=== PATIENT | female | born 1995 | race Caucasian/White ===

== ENCOUNTER 2019-09-12 15:24 | Emergency (ER) | payer OTHER, SELFPAY ==
[2019-09-12 15:35] VITALS: BP 136/82; PULSE 66; RESP 16; TEMP 36.8; O2SAT 99; BMI 25.8
--- NOTE | 2019-09-12 16:19 | ED_ITS ---
HPI - Headache <SUZETTE Miramontes - Last Filed: 09/12/19 19:10> General Chief Complaint: Headache Stated Complaint: neck and back pain with vision loss and migraine Time Seen by Provider: 09/12/19 15:39 Source: patient Mode of arrival: Ambulatory Limitations: no limitations History of Present Illness HPI Narrative: The patient is a 24-year-old female nonsmoker with history of migraines who presents with a chief complaint of a headache and visual disturbances going on since yesterday. She complains of ?[place] syndrome related to her migraine. She states that she has seen a neurologist in the past, who states that she has this syndrome when she has migraines. Over the past few days she has noted some jagged lines in her vision, some blurry vision at times, headache behind her eye in the back of her head. She has taken Tylenol and Motrin most recently 3 hours prior to arrival. Nausea no vomiting, photophobia and phonophobia noted. She denies any possibility of . She denies any falls or trauma. She does state that she saw her primary care provider last week for some neck pain, was started on ibuprofen and Flexeril. She states she has pain just at the base of her skull. No thunderclap sensation Related Data Allergies Allergy/AdvReac Type Severity Reaction Status Date / Time No Known Drug Allergies Allergy Verified 09/12/19 15:39 Review of Systems <FRED Miramontes - Last Filed: 09/12/19 19:10> Review of Systems Narrative: GENERAL: Denies chills, fatigue, malaise, fever, sweats. HEENT: Denies sinus pain, ear pain, sore throat, difficulty swallowing, dizziness. RESPIRATORY: Denies dyspnea, cough, wheezing, hemoptysis, sputum. CARDIOVASCULAR: Denies chest pain, palpitations, orthopnea, edema, GASTROINTESTINAL: Denies nausea, vomiting, abdominal pain, diarrhea, constipation, melena. : Denies dysuria, frequency, incontinence, hematuria, urinary retention. MUSCULOSKELETAL: denies weakness, joint pain, or bony pain SKIN: Denies rash, skin lesions, or other NEUROLOGIC: See HPI PSYCHIATRIC: No concerning psychosocial issues. 12 point review of systems is negative except for those stated above Exam <FRED MiramontesBC - Last Filed: 09/12/19 19:10> Narrative Exam Narrative: GENERAL: This is a well-nourished, well-developed patient, in no acute distress HEAD: Atraumatic. Normocephalic. No temporal or scalp tenderness. EYES: Pupils equal round and reactive. Extraocular motions intact. No scleral icterus. No injection or drainage. ENT: Nose without bleeding, purulent drainage or septal hematoma. Throat without erythema, tonsillar hypertrophy or exudate. Uvula midline. Airway patent. NECK: Trachea midline. No JVD or lymphadenopathy. Supple, nontender, no meningeal signs. CARDIOVASCULAR: Regular rate and rhythm RESPIRATORY: Clear to auscultation. Breath sounds equal bilaterally. No wheezes, rales, or rhonchi. GASTROINTESTINAL: Abdomen soft, non-tender, nondistended. No hepato- splenomegaly, or palpable masses. No guarding. EXTREMITIES: No clubbing, cyanosis, or edema. No joint tenderness, effusion, or edema noted. BACK: CT and L-spine or without deformity or crepitance. Pain to bilateral paraspinal C-spine muscles along skull. NEURO: AOx3. Interactive. Stable gait. Follows commands. SKIN: No rash or erythema on visible skin Initial Vital Signs Initial Vital Signs: Vital Signs Temperature 98.2 F 09/12/19 15:35 Pulse Rate 66 09/12/19 15:35 Respiratory Rate 16 09/12/19 15:35 Blood Pressure 136/82 09/12/19 15:35 Pulse Oximetry 99 09/12/19 15:35 <Samuel Reynoso DO - Last Filed: 09/12/19 19:20> Initial Vital Signs Initial Vital Signs: Vital Signs Temperature 98.2 F 09/12/19 15:35 Pulse Rate 66 09/12/19 15:35 Respiratory Rate 16 09/12/19 15:35 Blood Pressure 136/82 09/12/19 15:35 Pulse Oximetry 99 09/12/19 15:35 Scores <DANIELLE Miramontes-BC - Last Filed: 09/12/19 19:10> GCS Cathie coma scale eye opening: Spontaneous [place] coma scale verbal response: Orientated Cathie coma scale motor response: Obey commands Cathie coma scale total score: 15 NIH Stroke Scale Level of Conciousness: Alert, keenly responsive Ask month/age: Answers both questions correctly. Open/close eyes, close hand: Performs both tasks correctly Best gaze horizontal: Normal Facial palsy: Normal symetrical movement Left arm drift: No drift for full 10 sec Right arm drift: No drift for full 10 sec Left leg drift: No drift for full 10 sec Right leg drift: No drift for full 10 sec Limb ataxia: Absent Sensory on face/arms/legs: Normal, no sensory loss Best language: No aphasia, normal Dysarthria: Normal Extinction or inattention: No abnormality Course <DANIELLE Miramontes-KARRI - Last Filed: 09/12/19 19:10> Orders Ordered: Discontinued Medications Dexamethasone (Decadron) 10 mg IV NOW ONE Stop: 09/12/19 16:01 Last Admin: 09/12/19 16:20 Dose: 10 mg Documented by: LEDA Diphenhydramine HCl (Benadryl) 25 mg IV NOW ONE Stop: 09/12/19 16:31 Last Admin: 09/12/19 16:44 Dose: 25 mg Documented by: JAMIE Sodium Chloride (Normal Saline 0.9%) 1,000 mls @ 1,000 mls/hr IV BOLUS ONE Stop: 09/12/19 16:59 Last Infusion: 09/12/19 17:32 Dose: 0 mls/hr Documented by: Admin: 09/12/19 16:21 Dose: 1,000 mls/hr Documented by: LEDA Ondansetron HCl (Zofran) 4 mg IV NOW ONE Stop: 09/12/19 16:01 Last Admin: 09/12/19 16:21 Dose: 4 mg Documented by: LEDA Vital Signs Vital signs: Vital Signs - 8 hr 09/12/19 15:35 09/12/19 17:32 09/12/19 18:10 Temperature 98.2 F Pulse Rate 66 60 62 Respiratory Rate 16 18 18 Blood Pressure 136/82 Blood Pressure [Left Arm] 119/62 125/77 Pulse Oximetry 99 100 100 <Samuel Reynoso DO - Last Filed: 09/12/19 19:20> Orders Ordered: Discontinued Medications Dexamethasone (Decadron) 10 mg IV NOW ONE Stop: 09/12/19 16:01 Last Admin: 09/12/19 16:20 Dose: 10 mg Documented by: LEDA Diphenhydramine HCl (Benadryl) 25 mg IV NOW ONE Stop: 09/12/19 16:31 Last Admin: 09/12/19 16:44 Dose: 25 mg Documented by: JAMIE Sodium Chloride (Normal Saline 0.9%) 1,000 mls @ 1,000 mls/hr IV BOLUS ONE Stop: 09/12/19 16:59 Last Infusion: 09/12/19 17:32 Dose: 0 mls/hr Documented by: Admin: 09/12/19 16:21 Dose: 1,000 mls/hr Documented by: LEDA Ondansetron HCl (Zofran) 4 mg IV NOW ONE Stop: 09/12/19 16:01 Last Admin: 09/12/19 16:21 Dose: 4 mg Documented by: LEDA Vital Signs Vital signs: Vital Signs - 8 hr 09/12/19 15:35 09/12/19 17:32 09/12/19 18:10 Temperature 98.2 F Pulse Rate 66 60 62 Respiratory Rate 16 18 18 Blood Pressure 136/82 Blood Pressure [Left Arm] 119/62 125/77 Pulse Oximetry 99 100 100 MDM - Headache <DANIELLE Miramontes-BC - Last Filed: 09/12/19 19:10> Lab Data Labs: Point of Care Testing Test Results Negative Urine Dip Bedside Urine Glucose Negative Bedside Urine Bilirubin - Negative Bedside Urine Ketone - Negative Urine Specific [place] 1.010 Bedside Urine Occult Blood - Negative Bedside Urine pH 6 Bedside Urine Protein - Negative Bedside Urine Urobilinogen - Negative Bedside Urine Nitrite - Negative Bedside Urine Leukocytes - Negative Esterase MDM Narrative Medical decision making narrative: The patient is a 24-year-old female who presents with a chief complaint of visual changes of migraines and yesterday. She denies any current visual changes, though describes jagged line vision consistent with ocular migraine. She feels much improved after the above-stated therapies and requests to go home and sleep. Her NIH is 0. She no longer has any headache abortive medications. I discussed at length the importance of following up with primary care provider in the next few days. Discussed coming back to the emergency department for any acute concerns. Patient has no questions or concerns upon discharge and states understanding return precautions as well as follow-up care. <Samuel Reynoso DO - Last Filed: 09/12/19 19:20> Lab Data Labs: Point of Care Testing Test Results Negative Urine Dip Bedside Urine Glucose Negative Bedside Urine Bilirubin - Negative Bedside Urine Ketone - Negative Urine Specific [place] 1.010 Bedside Urine Occult Blood - Negative Bedside Urine pH 6 Bedside Urine Protein - Negative Bedside Urine Urobilinogen - Negative Bedside Urine Nitrite - Negative Bedside Urine Leukocytes - Negative Esterase Discharge Plan Departure Patient Disposition: Home Clinical Impression: Migraine Qualifiers: Migraine type: unspecified Status migrainosus presence: without status migrainosus Intractability: not intractable Qualified Code(s): G43.909 - Migraine, unspecified, not intractable, without status migrainosus Discharge Date/Time: 09/12/19 18:32 Instructions: DI for Migraine, DI for Headache Activity Restrictions/Additional Instructions: Thank you for trusting us with your care today Please home and rest. I suggest following up with primary care provider in the next few days. I have given you a work note so that you can rest and arrange follow-up with primary care provider Please come back to the emergency department for any acute concerns Referrals: Elayne Juarez ARNP [Primary Care Provider] - Stand Alone Forms: Work Release Note <Samuel Reynoso, - Last Filed: 09/12/19 19:20> Cosign ED Attending Cosadolfoature Attestation: Dr Reynoso Co-Sign Statement: I was available for consultation during this patient's emergency department visit. This chart is signed by myself for administrative purposes only. I did not have direct contact with this patient during this visit. They were seen independently by the APC.
[2019-09-12] MEDS: DEXAMETHASONE 10 MG/ML VIAL IV (16:20)
[2019-09-12] MEDS: SODIUM CHLORIDE 0.9% 1,000 ML 1000 ML IV (16:21)
[2019-09-12] MEDS: ONDANSETRON 4 MG/2 ML INJ IV (16:21)
[2019-09-12] MEDS: diphenhydrAMINE 50 MG/ML VIAL 25 MG IV (16:44)
[2019-09-12 17:32] VITALS: BP 119/62; PULSE 60; RESP 18; O2SAT 100
[2019-09-12 18:10] VITALS: BP 125/77; PULSE 62; RESP 18; O2SAT 100
== END 2019-09-12 18:32 | disposition home or self-care (01) ==
PROVIDERS: Emergency Provider Nurse Practitioner Family; PCP Nurse Practitioner Family
DX: G43.909 Migraine, unspecified, not intractable, without status migrainosus (principal); H53.9 Unspecified visual disturbance
CPT/HCPCS: 81003; 81025; 96361; 96374; 96375; 99283; 99284; J1100; J1200; J2405

== ENCOUNTER → 2020-09-13 11:35 | Outpatient (CLI) | payer OTHER, SELFPAY ==
[2020-09-13 13:04] LABS: Follicle Stimulating Hormone 4.73 mIU/mL; Luteinizing Hormone 3.39 mIU/mL
[2020-09-13 13:32] LABS: Prolactin 22.2 ng/mL (3.0-18.6)
[2020-09-16 09:36] LABS: Estrogen 155 pg/mL (.)
== END ==
PROVIDERS: PCP Nurse Practitioner Family; Referring Provider Obstetrics & Gynecology; Visit Provider Obstetrics & Gynecology
DX: N97.9 Female infertility, unspecified (principal)
CPT/HCPCS: 36415; 82672; 83001; 83002; 84146

== ENCOUNTER → 2020-10-11 08:56 | Outpatient (CLI) | payer OTHER, SELFPAY | PROVIDERS: PCP Nurse Practitioner Family; Referring Provider Obstetrics & Gynecology; Visit Provider Obstetrics & Gynecology | DX: N97.9 Female infertility, unspecified (principal) | CPT/HCPCS: 36415; 84146 ==

== ENCOUNTER → 2020-12-10 12:50 | Outpatient (CLI) | payer OTHER, SELFPAY ==
--- NOTE | 2020-12-10 12:52 | DI.RAD.S_ITS ---
PROCEDURE: HL HYSTEROSAPINGOGRAPHY INDICATIONS: Infertility COMPARISON: None. FINDINGS: Patient had a documented negative test prior to the study. Following speculum insertion, a balloon-tip catheter was inserted into the cervical canal, and secured by inflating the balloon. Contrast was then injected into the endometrial canal. Uterus: The uterine cavity appears normal in size and morphology, without synechiae or masses. Fallopian tubes: Both fallopian tubes fill with contrast, and appear normal in caliber and morphology. There is ready dispersion of contrast into the peritoneal cavity. IMPRESSION: Patent appearance of both fallopian tubes. Dictated by: Bacilio Shanks M.D. on 12/11/2020 at 9:40 Approved by: Bacilio Shanks M.D. on 12/11/2020 at 9:40
--- NOTE | 2020-12-10 13:31 | PM.PROC.1 ---
Procedures Date/Time Date of procedure: 12/10/20 Time of procedure: 13:15 General Procedure description: HYSTEROSALPINGOGRAM PROCEDURE NOTE Following verbal and written consent, a bivalve speculum was placed in the vagina and the cervix visualized. The cervix was painted with Betadine and an HSG catheter was introduced through the endocervical canal into the lower uterine cavity without difficulty. The balloon was inflated so as to maintain position within the endometrial cavity and after the arrival of the radiologist, Dr. aleman, the contrast material was slowly injected into the endometrial cavity with fluoro visualization recording what is normal endometrial cavity and prompt fill and spill of both fallopian tubes. Total contrast injected with 7 cc. At that point the balloon on the catheter was deflated and the catheter was removed intact from within the endometrial cavity. The patient tolerated the procedure extremely well and results were reviewed with her afterwards. Complications: none
== END ==
PROVIDERS: PCP Nurse Practitioner Family; Referring Provider Obstetrics & Gynecology; Visit Provider Obstetrics & Gynecology
DX: N97.0 Female infertility associated with anovulation (principal)
CPT/HCPCS: 58340; 74740